=== PATIENT | female | born 1975 | race Caucasian/White ===

== ENCOUNTER → 2020-03-30 12:21 | Outpatient (BNVA) | payer MEDICARE, MEDICAID, SELFPAY | PROVIDERS: PCP Family Medicine; Referring Provider Internal Medicine; Visit Provider Psychiatry & Neurology Neurology | DX: E11.40 Type 2 diabetes mellitus with diabetic neuropathy, unspecified (principal); G56.20 Lesion of ulnar nerve, unspecified upper limb | CPT/HCPCS: 95910; 95923; 99204 ==

== ENCOUNTER → 2020-06-23 13:04 | Outpatient (BNVA) | payer MEDICARE, MEDICAID, SELFPAY | PROVIDERS: PCP Family Medicine; Referring Provider Family Medicine; Visit Provider Nurse Practitioner Adult Health | DX: G56.20 Lesion of ulnar nerve, unspecified upper limb (principal); E11.40 Type 2 diabetes mellitus with diabetic neuropathy, unspecified; I10 Essential (primary) hypertension | CPT/HCPCS: 99213; 99441 ==

== ENCOUNTER 2021-05-20 03:42 | Outpatient (CLI) | payer MEDICARE, MEDICAID, SELFPAY ==
--- NOTE | 2021-05-20 | DI.US_ITS ---
Exam(s) US ABDOMEN LIMITED EXAM: US ABDOMEN LIMITED CLINICAL HISTORY: HEPATIC CIRRHOSIS,K74.60,SCREEN FOR HCC TECHNIQUE: Ultrasound performed using standard protocol. COMPARISON: US US ABD LTD - ONE ORGAN/QUAD from 05/31/2020 FINDINGS: There is reportedly history of cirrhosis. There is mild nodular contour of the liver consistent with this diagnosis and there is also coarse echotexture of the liver consistent with this diagnosis. No focal lesion identified. Mild hepatomegaly noted. Note is made of hepatofugal flow in the portal vein. Gallbladder has been surgically removed. There is no biliary dilatation. Right kidney unremarkable in appearance with no evidence of hydronephrosis or nephrolithiasis. IMPRESSION: No focal hepatic mass in a patient with reported history of cirrhosis. Hepatofugal flow is noted in the portal vein. DATA REPOSITORY:
== END 2021-05-20 04:02 ==
PROVIDERS: Visit Provider Internal Medicine Gastroenterology
DX: K74.60 Unspecified cirrhosis of liver (principal)
CPT/HCPCS: 76705

== ENCOUNTER 2023-07-25 10:38 | Outpatient (CLI) | payer MEDICARE, SELFPAY ==
--- NOTE | 2023-07-25 09:45 | DI.RAD_ITS ---
Exam(s) XR SHOULDER LT COMPLETE 2+V EXAM: XR SHOULDER LT COMPLETE 2+V INDICATION: F/U FRACTURE. COMPARISON: CR XR SHOULDER MIN 2V LT from 07/18/2023 TECHNIQUE: 2D digital imaging was performed. Two views. FINDINGS: There has been no change in the alignment of the humeral head fracture. Glenohumeral joint space is maintained. No new findings. DATA REPOSITORY: RADIATION DOSE DELIVERED:
== END 2023-07-25 10:39 | disposition home or self-care (01) ==
LOC: DIORS 10:39
PROVIDERS: PCP Registered Nurse; Referring Provider Registered Nurse; Visit Provider Student in an Organized Health Care Education/Training Program
DX: M25.512 Pain in left shoulder (principal); S42.202A Unspecified fracture of upper end of left humerus, initial encounter for closed fracture; W00.9XXA Unspecified fall due to ice and snow, initial encounter
CPT/HCPCS: 99203; 73030; 73200

== ENCOUNTER → 2023-07-25 16:58 | Outpatient (CLI) | payer MEDICARE, SELFPAY ==
--- NOTE | 2023-07-25 11:15 | DI.CT_ITS ---
Exam(s) CT UPPER EXTREMITY LT WO EXAM: CT UPPER EXTREMITY LT WO CLINICAL HISTORY: SURGICAL PLANNING, S4 Unspecified fx of upper end of left humerus. TECHNIQUE: Imaging Protocol: Axial computed tomography images with coronal and sagittal reformatted images were created and reviewed. COMPARISON: CR XR SHOULDER LT COMPLETE 2+V from 07/25/2023 FINDINGS: Bones: Comminuted humeral head fracture. Main fracture extends transversely through the surgical nec k. Multiple other fracture lines extend through to the greater tuberosity. Minimal displacement. N o additional fractures. No cellulitic or osteomyelitic changes are identified. No lytic or sclerotic lesions are identified. Joints: The glenohumeral and acromioclavicular joints show minimal degenerative changes. Glenohumeral alignment appears normal. Soft Tissues: Glenohumeral joint effusion. No significant muscle atrophy. Visualized portion of lef t lung appear clear. IMPRESSION: Comminuted fracture of the humeral head with mild displacement. RADIATION DOSE DELIVERED: Total DLP Total DLP Total DLP Total DLP DATA REPOSITORY: All CT scans at this facility are submitted to the National Radiology Data Registry (NRDR) Dose Index Registry (DIR) with the [employer] ([employer]). RADIATION OPTIMIZATION: All CT scans at this facility use at least one of these dose optimization te chniques: automated exposure control; mA and/or kV adjustment per patient size (includes targeted exa ms where dose is matched to clinical indication); or iterative reconstruction.
== END ==
PROVIDERS: PCP Registered Nurse; Visit Provider Student in an Organized Health Care Education/Training Program
DX: S42.352D Displaced comminuted fracture of shaft of humerus, left arm, subsequent encounter for fracture with routine healing (principal); X58.XXXD Exposure to other specified factors, subsequent encounter
CPT/HCPCS: 73200

== ENCOUNTER 2023-08-29 15:52 | Outpatient (CLI) | payer MEDICARE, MEDICAID, SELFPAY ==
--- NOTE | 2023-08-29 10:00 | DI.RAD_ITS ---
Exam(s) XR SHOULDER LT COMPLETE 2+V EXAM: XR SHOULDER LT COMPLETE 2+V CLINICAL HISTORY: F/U FRACTURE. TECHNIQUE: 2D digital imaging was performed. COMPARISON: CR XR SHOULDER LT COMPLETE 2+V from 07/25/2023 FINDINGS: Two views: Again noted is a transverse mildly impacted fracture of the humeral neck and no evidence of dislocati on nor narrowing of the glenohumeral joint. The fracture also appears to involve the greater tuberos ity. Subacromial space is not diminished. IMPRESSION: Stable appearance. No significant displacement. Mild impaction. No dislocation. DATA REPOSITORY: RADIATION DOSE DELIVERED:
== END 2023-08-29 15:53 | disposition home or self-care (01) ==
LOC: DIORS 15:52
PROVIDERS: PCP Registered Nurse; Referring Provider Registered Nurse; Visit Provider Student in an Organized Health Care Education/Training Program
DX: S42.202D Unspecified fracture of upper end of left humerus, subsequent encounter for fracture with routine healing; X58.XXXD Exposure to other specified factors, subsequent encounter; M25.622 Stiffness of left elbow, not elsewhere classified; R60.0 Localized edema; R23.3 Spontaneous ecchymoses; K74.60 Unspecified cirrhosis of liver
CPT/HCPCS: 99213; 73030

== ENCOUNTER 2023-10-24 15:27 | Outpatient (CLI) | payer MEDICARE, MEDICAID, SELFPAY ==
--- NOTE | 2023-10-24 11:13 | DI.RAD_ITS ---
Exam(s) XR SHOULDER LT COMPLETE 2+V EXAM: XR SHOULDER LT COMPLETE 2+V CLINICAL HISTORY: F/U FRACTURE. TECHNIQUE: 2D digital imaging was performed of the left shoulder. Three images were obtained. Gras hey and Y views were obtained. COMPARISON: CR XR SHOULDER LT COMPLETE 2+V from 08/29/2023 FINDINGS: BONES: Given the slight changes in positioning there does not appear to be significant change in alig nment of the proximal humeral surgical neck fracture. There is callus formation again seen about the fracture suggesting some interval healing. No new fracture is seen. No bony destructive lesion is seen. JOINTS: No dislocation present. The acromioclavicular and glenohumeral joints are well maintained. SOFT TISSUE: The visualized lungs are clear. IMPRESSION: Stable alignment of the proximal left humeral fracture. DATA REPOSITORY: RADIATION DOSE DELIVERED:
== END 2023-10-24 15:28 | disposition home or self-care (01) ==
LOC: DIORS 15:27
PROVIDERS: PCP Registered Nurse; Referring Provider Registered Nurse; Visit Provider Student in an Organized Health Care Education/Training Program
DX: S42.202D Unspecified fracture of upper end of left humerus, subsequent encounter for fracture with routine healing (principal); X58.XXXD Exposure to other specified factors, subsequent encounter; M25.622 Stiffness of left elbow, not elsewhere classified
CPT/HCPCS: 99213; 73030

== ENCOUNTER 2024-06-20 15:01 | Emergency (ER) | payer MEDICARE, MEDICAID, SELFPAY ==
[2024-06-20] VITALS (10 sets, daily range): BP systolic 166–181; BP diastolic 111–128; PULSE 88–111; RESP 6–16; TEMP 36.6; O2SAT 96–100
[2024-06-20 15:44] LABS: Abs Immature Grans 0.02 10^3/uL (0.0-0.06); Absolute Basophil Count 0.02 10^3/uL (0.0-0.2); Absolute Eosinophil Count 0.03 10^3/uL (0.0-0.7); Absolute Monocyte Count 0.64 10^3/uL (0.1-0.8); Absolute Neutrophil Count 3.68 10^3/uL (1.2-6.7); BE (Venous) 2 mmol/L (-2-3); Basophils % 0.3 %; Eosinophils % 0.5 %; HCO3 (Venous) 26 mmol/L (23-28); HCT 34.2 % (36.0-46.0); HGB 11.8 g/dL (11.2-15.7); Immature Grans % 0.3 %; Lymphocytes % 25.5 %; MCH 32.2 pg (27.0-33.0); MCHC 34.5 % (32.0-36.0); MCV 93 fL (80-95); MPV 9.6 fL (8.0-11.0); Monocytes % 10.9 %; Neutrophils % 62.5 %; O2 Sat (Venous) 89 %; Platelet Count 125 10^3/uL (130-400); RBC 3.67 10^6/uL (3.93-5.22); RDW 14.5 % (11.7-14.6); RDW-SD 47.9 fL; TCO2 (Venous) 24 mmol/L (24-29); WBC 5.89 10^3/uL (4.4-10.8); pCO2 (Venous) 41 mmHg (41-51); pH (Venous) 7.42 (7.31-7.41); pO2 (Venous) 58 mmHg
[2024-06-20 16:01] LABS: INR 1.6 (0.9-1.1); PTT Activated 31.3 sec (23.6-32.8); Prothrombin Time 15.8 sec (9.1-11.1)
[2024-06-20 16:08] LABS: ALT 40 U/L (14-59); AST 70 U/L (15-37); Albumin 3.7 g/dL (3.4-5.0); Alkaline Phosphatase 116 U/L (46-116); Anion Gap 14.7 mmol/L (3-11); BUN 8 mg/dL (7-18); Bilirubin, Total 2.28 mg/dL (0.2-1.0); CO2 26.3 mmol/L (21.0-32.0); CREATININE 0.8 mg/dL (0.55-1.02); Calcium 9.8 mg/dL (8.5-10.1); Chloride 97 mmol/L (98-107); ETHANOL BLOOD 5.9 mg/dL (<10); Glucose 275 mg/dL (74-106); Potassium 3.5 mmol/L (3.5-5.1); Sodium 138 mmol/L (136-145); Total Protein 9.9 g/dL (6.4-8.2)
[2024-06-20 16:58] LABS: Bilirubin Moderate (Negative); Blood Negative (Negative); Clarity Clear (Clear); Glucose 500 mg/dL (Negative); Ketones 40 mg/dL (Negative); Leukocyte Esterase Negative (Negative); Nitrite Negative (Negative); Specific Gravity 1.025 (1.005-1.025); Urobilinogen >=8.0 mg/dL (Up to 0.2)
[2024-06-20 17:07] LABS: Bacteria Negative HPF (Negative); C & S Indicated? No; Crystals Negative HPF (Negative); Epithelial Cells Many HPF (Negative); Mucus Trace (Negative); Other Cells Rare Yeast (Negative); RBC 0-2 HPF (0-2); WBC 0-2 HPF (0-5)
[2024-06-20] MEDS: Insulin REGULAR-Human 100 UNITS/ML UNIT IV (17:07)
[2024-06-20 18:07] LABS: Anion Gap 11.4 mmol/L (3-11); BUN 9 mg/dL (7-18); CO2 29.6 mmol/L (21.0-32.0); CREATININE 0.8 mg/dL (0.55-1.02); Calcium 9.5 mg/dL (8.5-10.1); Chloride 99 mmol/L (98-107); Glucose 115 mg/dL (74-106); Potassium 3.2 mmol/L (3.5-5.1); Sodium 140 mmol/L (136-145)
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
== END 2024-06-20 18:33 | disposition home or self-care (01) ==
PROVIDERS: Emergency Provider Emergency Medicine; PCP Registered Nurse
DX: E11.65 Type 2 diabetes mellitus with hyperglycemia (principal); I10 Essential (primary) hypertension; R00.0 Tachycardia, unspecified; E11.40 Type 2 diabetes mellitus with diabetic neuropathy, unspecified; B19.20 Unspecified viral hepatitis C without hepatic coma; K70.30 Alcoholic cirrhosis of liver without ascites; Z79.84 Long term (current) use of oral hypoglycemic drugs; Z87.891 Personal history of nicotine dependence
CPT/HCPCS: 36415; 80048; 80053; 82805; 82962; 86850; 86900; 86901; 99284; 80320; 81003; 81015; 85025; 85610; 85730; 99283; J1815

== ENCOUNTER 2024-07-14 13:39 | Emergency (ER) | payer MEDICARE, MEDICAID, SELFPAY ==
[2024-07-14 13:42] VITALS: BP 129/89; PULSE 88; RESP 17; TEMP 37.2; O2SAT 99
[2024-07-14 13:49] VITALS: BP 129/89; PULSE 88; RESP 17; TEMP 37.2; O2SAT 99
[2024-07-14 14:10] VITALS: RESP 16
[2024-07-14] MEDS: Insulin REGULAR-Human 100 UNITS/ML UNIT 9 UNITS SC (14:30)
--- NOTE | 2024-07-14 14:46 | W.ED.GENAD ---
Discharge Plan Disposition Patient Disposition: Home Condition: Good Discharge Details Clinical Impression: Hyperglycemia, Thrombocytopenia, Leukopenia Primary Care Provider: Celia Mhamood ED Provider: Jaquan Chen Home Meds and New Rx's Prescriptions: New (DME) diabetic supplies, miscellan. Misc See Rx Instructions .Route Qty: 25 0RF Rx Instructions: As directed, glucometer, test strips, testing stylette No Action gabapentin 300 mg capsule 300 mg PO QHS Qty: 60 5RF Rx Instructions: 300mg HS x 1week, then 600mg HS thereafter lisinopril 2.5 mg tablet 1.5 mg PO DAILY sxzpdonb-zqgr-bvqro-oreg-capry 100 mg-150 mg- 50 mg-150 mg capsule 1 cap PO DAILY calcium carbonate [Calcium 600] 600 mg calcium (1,500 mg) tablet 600 mg PO DAILY lorazepam [Ativan] 0.5 mg tablet 0.5 mg PO BID PRN omeprazole 40 mg capsule,delayed release(DR/EC) 40 mg PO DAILY ondansetron HCl 4 mg tablet 4 mg PO BID PRN ascorbate calcium (vitamin C) 500 mg tablet 1 gm PO DAILY methadone 10 mg/5 mL solution 115 mg PO DAILY Trulicity 1.5 mg/0.5 mL pen injector 1.5 mg SUBCUT QWEEK Patient Comments: INJECT 1.5 MG (0.5 ML) SUBCUTANEOUSLY ONCE A WEEK lisinopril 5 mg tablet 5 mg PO DAILY Patient Comments: TAKE 1 TABLET BY MOUTH ONCE DAILY Discharge Instructions Instructions: Bleeding Precautions, High Blood Sugar, Adult ED Additional Instructions: At this time your laboratory workup has returned and shows evidence of a low white blood cell count and low platelets. While you have had this in the past, it certainly does require further evaluation. Please follow-up closely with your primary care provider. We have placed a referral for a new PCP in this area as well. We have also placed a referral with [facility] hematology for further evaluation of your abnormally low white blood cell and platelets. Please avoid any alcohol tobacco or vaping. Please take a daily multivitamin. Please avoid any excessive ibuprofen. Please try to focus on healthy diet. If you notice any worsening of your symptoms, or any new symptoms such as vomiting, diarrhea, fever, chills, shortness of breath, chest pain, numbness, weakness, or fainting , please return immediately to the emergency department for reevaluation. Please follow up with your primary care provider as soon as possible for reassessment and reevaluation. As always, it was a pleasure participating in your medical care today. Referrals: Celia Mahmood NP [Primary Care Provider] - [facility] General Date/Time Provider Initiated Documentation: 07/14/24 13:58. HPI Narrative: 49-year-old female with a past medical history of hypertension, high cholesterol, methadone use, diabetes currently on insulin specifically Lantus every night and Trulicity every week. She presents today for feeling off. Patient states that she has been feeling off for the last 24 to 48 hours. She is not able to describe this anymore. She does admit to feeling slightly fatigued. She denies any dysuria, hematuria, chest pain, cough, shortness of breath, headache or neck pain. She did check her sugar and noticed it to be elevated in the mid to high 200s. She has not missed her doses of Lantus. She took this last night as indicated. She is scheduled to get her Trulicity tomorrow. No other complaints at this time. Related Data Home Medications ?Medication ?Instructions ?Recorded ?Confirmed ascorbate calcium (vitamin C) 500 1 gm PO DAILY 03/11/20 07/14/24 mg tablet lorazepam 0.5 mg tablet (Ativan) 0.5 mg PO BID PRN 03/11/20 07/14/24 omeprazole 40 mg capsule,delayed 40 mg PO DAILY 03/11/20 07/14/24 release ondansetron HCl 4 mg tablet 4 mg PO BID PRN 03/11/20 07/14/24 gabapentin 300 mg capsule 300 mg PO QHS #60 caps 03/30/20 07/14/24 methadone 10 mg/5 mL oral solution 115 mg PO DAILY 03/30/20 07/14/24 calcium carbonate (Calcium 600) 600 mg PO DAILY 08/29/23 07/14/24 turmeric 100 mg-margarita 150 1 cap PO DAILY 08/29/23 07/14/24 mg-olive 50 mg-oreg 150 mg-capryl capsule lisinopril 2.5 mg tablet 1.5 mg PO DAILY 06/20/24 07/14/24 diabetic supplies, miscellan. #25 ea 07/14/24 dulaglutide 1.5 mg/0.5 mL 1.5 mg subcut QWEEK 07/14/24 07/14/24 [facility] lisinopril 5 mg tablet 5 mg PO DAILY 07/14/24 07/14/24 Previous Rx's ?Medication ?Instructions ?Recorded gabapentin 300 mg capsule 300 mg PO QHS #60 caps 03/30/20 diabetic supplies, miscellan. #25 ea 07/14/24 Allergies Allergy/AdvReac Type Severity Reaction Status Date / Time prochlorperazine (From Allergy Severe Dyspnea,tongue Verified 07/14/24 13:46 Compazine) and face stiffness General Stated Complaint: GenMedical LEO: 3 Review of Systems All systems reviewed & are unremarkable except as noted in HPI and below Exam Narrative Exam Narrative: 1.Const: Well-nourished, Well-developed, appearing stated age 2.Eyes: PERRL, no conjunctival injection, and symmetrical lids. 3.ENT: Atraumatic external nose and ears. Notably dry mucous membranes MM. Neck: Symmetric, trachea midline, No thyromegaly. 4.CVS: +S1/S2, Peripheral pulses 2+ and equal in all extremities. Brisk capillary refill in all extremities. 5.RESP: Unlabored respiratory effort. Clear to auscultation bilaterally. No wheezes rales or rhonchi 6.GI: Soft, Nontender/Nondistended, No hepatosplenomegaly. No guarding or rebound. 7.MSK: Normocephalic/Atraumatic, Extremities w/o deformity or ttp No cyanosis or clubbing, Normal movement of all extremities 8.Skin: Warm, Dry. No rashes or lesions. 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 Sensation grossly intact, no focal neurologic deficits. 10.Psych: (AAO) x3. Appropriate mood and affect Course Vital Signs Vital signs: Vital Signs Temperature 37.2 C 07/14/24 13:42 Pulse 88 07/14/24 13:42 Respiratory Rate 17 07/14/24 13:42 Blood Pressure 129/89 07/14/24 13:42 Pulse Oximetry 99 07/14/24 13:42 Temperature 37.2 C 07/14/24 13:49 Temperature Source Oral 07/14/24 13:49 Pulse 88 07/14/24 13:49 Respiratory Rate 16 07/14/24 14:10 Respiratory Effort Normal, Non-Labored 07/14/24 14:10 Respiratory Depth Normal 07/14/24 14:10 Respiratory Pattern Normal 07/14/24 14:10 Blood Pressure 129/89 07/14/24 13:49 Blood Pressure Position Sitting 07/14/24 13:49 Pulse Oximetry 99 07/14/24 13:49 Oxygen Delivery Method Room Air 07/14/24 13:49 Oxygen Flow Rate 0 07/14/24 13:49 Pain Level 0 07/14/24 13:49 Medical Decision Making 49-year-old female with a past medical history of hypertension, high cholesterol, methadone use, diabetes currently on insulin specifically Lantus every night and Trulicity every week. She presents today for feeling off. Patient states that she has been feeling off for the last 24 to 48 hours. She is not able to describe this anymore. She does admit to feeling slightly fatigued. She denies any dysuria, hematuria, chest pain, cough, shortness of breath, headache or neck pain. She did check her sugar and noticed it to be elevated in the mid to high 200s. She has not missed her doses of Lantus. She took this last night as indicated. She is scheduled to get her Trulicity tomorrow. No other complaints at this time. Physical exam demonstrates well-appearing female. No guarding or rebound. No nuchal rigidity. Dry mucous membranes are present. Concern for dehydration, electrolyte pathology, UTI. Will evaluate for these, monitor closely and reassess. We will give insulin as well to help bring her sugars down. 3:49 PM Laboratory workup has returned, patient does have a low white blood cell count of 2.85, hemoglobin stable, platelets are also low at 77. Review of labs demonstrates that the patient has been low in the past, and when discussing this with her she states that she is required a platelet transfusion in the past. She states that she has not had a significant workup for these low levels secondary to changes and retirements of practitioners that were caring for her. Patient's bili is slightly elevated at 1.5 however she has no jaundice or right upper quadrant tenderness. And in review of her labs this appears to be her baseline to have an elevated bili. Urinalysis does show some trace ketones, but no evidence of infection. Bicarb is normal, anion gap is only 12. Symptoms inconsistent for DKA. Patient is feeling much better after oral fluids and small dose of insulin. Patient shows no signs of significant life-threatening illness at this time. She also denies any recent unexplained bruising, nosebleeds, or other hematologic like symptoms. She does admit to this in the distant past over a year or 2 ago. Out of concern for these findings, we we will place a referral with [facility] hematology for follow-up. Additionally she is seeking to switch practitioners to [facility] in [facility], and we will place a referral on her behalf. Recommend close follow-up with her PCP. Patient otherwise stable at this time for discharge. Recommend low sugar diet, and close monitoring of her blood sugars at home. We will place a prescription for diabetic supplies. Patient stable for discharge. I have extensively reviewed the treatment plan and discharge instructions with the patient. I have addressed all patient concerns at this time. The patient was made aware of what symptoms to monitor for that would warrant a return to the emergency department. Discussed the plan with the patient, they demonstrate verbal understanding and agreement with our assessment and plan at this time. The documentation in this chart was dictated using [employer] dictation software. Please excuse any dictation errors. 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) Diabetic neuropathy (Acute) Medical History (Updated 07/14/24 @ 15:34 by Jaquan Chen DO) Insomnia Migraine headache without aura Hepatitis C GERD (gastroesophageal reflux disease) Depression Hypertension Fracture of right lower limb Pain of breast Hernia Nonspecific tuberculin test reaction Hypothyroidism Right sided sciatica Pain in right lower leg Asthma Opioid dependence Type 2 diabetes mellitus Surgical History S/P ORIF (open reduction internal fixation) fracture R leg; 07/17, 10/16, 04/18 History of esophagogastroduodenoscopy (EGD) History of dilation and curettage History of liver biopsy History of cholecystectomy H/O resection of liver Family History Maternal Grandfather Stomach cancer Hypertension Lung cancer Paternal Grandmother Breast cancer Hypertension Maternal Uncle Diabetes Social History Smoking/Tobacco Use Status: Former Tobacco Use Smoking risk assessment performed?: Yes Alcohol Intake: never Drug use: Never Substance use type: does not use Household members: none Housing: apartment Number of Children: 0 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
[2024-07-14 14:47] LABS: Abs Immature Grans 0.01 10^3/uL (0.0-0.06); Absolute Basophil Count 0.02 10^3/uL (0.0-0.2); Absolute Eosinophil Count 0.01 10^3/uL (0.0-0.7); Absolute Lymphocyte Count 1.03 10^3/uL (1.2-3.4); Absolute Monocyte Count 0.17 10^3/uL (0.1-0.8); Absolute Neutrophil Count 1.61 10^3/uL (1.2-6.7); Basophils % 0.7 %; Eosinophils % 0.4 %; HCT 33.8 % (36.0-46.0); HGB 11.4 g/dL (11.2-15.7); Immature Grans % 0.4 %; Lymphocytes % 36.1 %; MCH 31.9 pg (27.0-33.0); MCHC 33.7 % (32.0-36.0); MCV 95 fL (80-95); MPV 10.9 fL (8.0-11.0); Neutrophils % 56.4 %; RBC 3.57 10^6/uL (3.93-5.22); RDW-SD 45.1 fL; WBC 2.85 10^3/uL (4.4-10.8)
[2024-07-14 14:48] LABS: Bilirubin Negative (Negative); Blood Negative (Negative); Clarity Clear (Clear); Glucose >=1000 mg/dL (Negative); Ketones Trace mg/dL (Negative); Leukocyte Esterase Negative (Negative); Nitrite Negative (Negative); Specific Gravity 1.015 (1.005-1.025); Urobilinogen >=8.0 mg/dL (Up to 0.2); pH 6.5 (5-8)
[2024-07-14 14:54] LABS: ALT 37 U/L (14-59); AST 99 U/L (15-37); Albumin 3.5 g/dL (3.4-5.0); Alkaline Phosphatase 109 U/L (46-116); Anion Gap 12.1 mmol/L (3-11); BUN 9 mg/dL (7-18); Bilirubin, Total 1.51 mg/dL (0.2-1.0); CO2 26.9 mmol/L (21.0-32.0); CREATININE 0.9 mg/dL (0.55-1.02); Calcium 8.5 mg/dL (8.5-10.1); Chloride 98 mmol/L (98-107); Estimated GFR 78.86 (mL/min/1.73m2); Glucose 240 mg/dL (74-106); Potassium 3.9 mmol/L (3.5-5.1); Sodium 137 mmol/L (136-145); Total Protein 9.5 g/dL (6.4-8.2)
[2024-07-14 15:00] LABS: Platelet Count 77 10^3/uL (130-400)
[2024-07-14 15:12] LABS: Bacteria Rare HPF (Negative); Casts Negative LPF (Negative); Crystals Negative HPF (Negative); Epithelial Cells Few HPF (Negative); Mucus Negative (Negative); Other Cells Rare Transitional (Negative); RBC 0-2 HPF (0-2); WBC 0-2 HPF (0-5)
[2024-07-14 15:13] LABS: C & S Indicated? No
[2024-07-14 15:55] VITALS: BP 137/96; PULSE 83; RESP 17; TEMP 36.7; O2SAT 100
== END 2024-07-14 15:59 | disposition home or self-care (01) ==
PROVIDERS: Emergency Provider Student in an Organized Health Care Education/Training Program; PCP Registered Nurse
DX: D72.819 Decreased white blood cell count, unspecified; D69.6 Thrombocytopenia, unspecified; I10 Essential (primary) hypertension; E78.5 Hyperlipidemia, unspecified; Z79.891 Long term (current) use of opiate analgesic; R53.83 Other fatigue; E11.65 Type 2 diabetes mellitus with hyperglycemia
CPT/HCPCS: 36416; 80053; 82962; 99283; 81003; 81015; 85025; 99284; J1815

== ENCOUNTER 2024-08-11 07:03 | Emergency (ER) | payer MEDICARE, MEDICAID, SELFPAY ==
[2024-08-11 07:10] VITALS: BP 115/81; PULSE 89; RESP 16; TEMP 36.6; O2SAT 99
[2024-08-11 07:51] LABS: Bilirubin Small (Negative); Blood Trace-lysed (Negative); Clarity Cloudy (Clear); Glucose Negative (Negative); Ketones 15 mg/dL (Negative); Leukocyte Esterase Moderate (Negative); Nitrite Negative (Negative); Urobilinogen >=8.0 mg/dL (Up to 0.2)
[2024-08-11 07:59] LABS: C & S Indicated? No; WBC >50 HPF (0-5)
--- NOTE | 2024-08-11 08:06 | ED.GENADUL_ITS ---
Discharge Plan Disposition Patient Disposition: Home Condition: Good Discharge Details Clinical Impression: UTI (urinary tract infection) Primary Care Provider: Celia Mahmood ED Provider: Jaquan Chen Home Meds and New Rx's Prescriptions: New cephalexin 500 mg capsule 500 mg PO QID 7 Days Qty: 28 0RF estradiol [Estrace] 0.01 % (0.1 mg/gram) cream 1 appful vaginal DAILY Qty: 42.5 0RF Rx Instructions: for 14 days No Action lisinopril 2.5 mg tablet 1.5 mg PO DAILY calcium carbonate [Calcium 600] 600 mg calcium (1,500 mg) tablet 600 mg PO DAILY lorazepam [Ativan] 0.5 mg tablet 0.5 mg PO BID PRN omeprazole 40 mg capsule,delayed release(DR/EC) 40 mg PO DAILY ondansetron HCl 4 mg tablet 4 mg PO BID PRN ascorbate calcium (vitamin C) 500 mg tablet 1 gm PO DAILY methadone 10 mg/5 mL solution 115 mg PO DAILY Trulicity 1.5 mg/0.5 mL pen injector 1.5 mg SUBCUT QWEEK Patient Comments: INJECT 1.5 MG (0.5 ML) SUBCUTANEOUSLY ONCE A WEEK lisinopril 5 mg tablet 5 mg PO DAILY Patient Comments: TAKE 1 TABLET BY MOUTH ONCE DAILY (DME) diabetic supplies, miscellan. [facility] See Rx Instructions .Route Qty: 25 0RF Rx Instructions: As directed, glucometer, test strips, testing stylette (DME) blood-glucose meter Kit See Rx Instructions .Route Qty: 1 0RF Rx Instructions: check 3 times daily before meals (DME) blood sugar diagnostic Strip See Rx Instructions .Route Qty: 100 1RF Rx Instructions: TID before meals (DME) lancets [address] [facility] See Rx Instructions .Route Qty: 200 0RF Rx Instructions: tid magnesium oxide 500 mg magnesium tablet 500 mg PO DAILY Patient Comments: TAKE 1 TABLET BY MOUTH ONCE DAILY potassium chloride 20 mEq tablet extended release 20 meq PO BID Patient Comments: TAKE 1 TABLET BY MOUTH TWICE DAILY gabapentin 300 mg capsule 300 mg PO QHS PRN Rx Instructions: 300mg HS x 1week, then 600mg HS thereafter insulin glargine [Lantus Solostar U-100 Insulin] 100 unit/mL (3 mL) insulin pen 28 unit SUBCUT DAILY Patient Comments: INJECT 28 UNITS SUBCUTANEOUSLY DAILY Discharge Instructions Instructions: Urinary Tract Infection, Adult ED Additional Instructions: At this time you have evidence of urinary tract infection. Sometimes this can be a reflection of the change in the bacteria that are present in the genital area as we get older and transition through menopause. Please take the antibiotic Keflex as prescribed. Is been sent to your pharmacy on file. Please use the vaginal estrogen as prescribed for the time being to help increase the natural state of the genital area. Please take an cngo-ahh-vpqonfe cranberry supplement while you have your symptoms of the UTI. If you notice any worsening of your symptoms, or any new symptoms such as vomiting, diarrhea, fever, chills, shortness of breath, chest pain, numbness, weakness, or fainting , please return immediately to the emergency department for reevaluation. Please follow up with your primary care provider as soon as possible for reassessment and reevaluation. As always, it was a pleasure participating in your medical care today. Referrals: Celia Mahmood NP [Primary Care Provider] - Discharge Data Discharge Date/Time-TO BE ENTERED AT DEPARTURE: 08/11/24 08:52 HPI General Date/Time Provider Initiated Documentation: 08/11/24 07:11 . HPI Narrative: This is a pleasant 49-year-old female with a past medical history of hypertension, high cholesterol, methadone use, diabetes currently on insulin specifically Lantus every night and Trulicity every week, who presents today for evaluation of urinary frequency and discomfort. Patient states it has been present for the last few days. She denies fever or chills. She denies any flank pain. She has not had intercourse in a long time. She has gone through menopause she states. She denies any history of kidney stones. No other complaints at this time. No hematuria. She has been taking cranberry without significant improvement. Related Data Home Medications ?Medication ?Instructions ?Recorded ?Confirmed ascorbate calcium (vitamin C) 500 1 gm PO DAILY 03/11/20 08/11/24 mg tablet lorazepam 0.5 mg tablet (Ativan) 0.5 mg PO BID PRN 03/11/20 08/11/24 omeprazole 40 mg capsule,delayed 40 mg PO DAILY 03/11/20 08/11/24 release ondansetron HCl 4 mg tablet 4 mg PO BID PRN 03/11/20 08/11/24 methadone 10 mg/5 mL oral solution 115 mg PO DAILY 03/30/20 08/11/24 calcium carbonate (Calcium 600) 600 mg PO DAILY 08/29/23 08/11/24 lisinopril 2.5 mg tablet 1.5 mg PO DAILY 06/20/24 08/11/24 diabetic supplies, miscellan. #25 ea 07/14/24 dulaglutide 1.5 mg/0.5 mL 1.5 mg subcut QWEEK 07/14/24 08/11/24 subcutaneous pen injector (Trulicity) lisinopril 5 mg tablet 5 mg PO DAILY 07/14/24 08/11/24 blood sugar diagnostic #100 ea 07/15/24 blood-glucose meter #1 ea 07/15/24 lancets 30 gauge #200 ea 07/15/24 cephalexin 500 mg capsule 500 mg PO QID 7 days #28 caps 08/11/24 estradiol 0.01% (0.1 mg/gram) 1 appful vaginal DAILY #42.5 grams 08/11/24 vaginal cream (Estrace) gabapentin 300 mg capsule 300 mg PO QHS PRN 08/11/24 08/11/24 insulin glargine 100 unit/mL (3 28 unit subcut DAILY 08/11/24 08/11/24 mL) subcutaneous pen (Lantus Solostar U-100 Insulin) magnesium oxide 500 mg PO DAILY 08/11/24 08/11/24 potassium chloride 20 mEq 20 meq PO BID 08/11/24 08/11/24 tablet,extended release Previous Rx's ?Medication ?Instructions ?Recorded diabetic supplies, miscellan. #25 ea 07/14/24 blood sugar diagnostic #100 ea 07/15/24 blood-glucose meter #1 ea 07/15/24 lancets 30 gauge #200 ea 07/15/24 cephalexin 500 mg capsule 500 mg PO QID 7 days #28 caps 08/11/24 estradiol 0.01% (0.1 mg/gram) 1 appful vaginal DAILY #42.5 grams 08/11/24 vaginal cream (Estrace) Allergies Allergy/AdvReac Type Severity Reaction Status Date / Time prochlorperazine (From Allergy Severe Dyspnea,tongue Verified 08/11/24 07:14 Compazine) and face stiffness General Stated Complaint: Urinary LEO: 4 Exam Narrative Exam Narrative: 1.Const: Well-nourished, Well-developed, appearing stated age 2.Eyes: PERRL, no conjunctival injection, and symmetrical lids. 3.ENT: Atraumatic external nose and ears. Moist MM. Neck: Symmetric, trachea midline, No thyromegaly. 4.CVS: +S1/S2, Peripheral pulses 2+ and equal in all extremities. Brisk capillary refill in all extremities. 5.RESP: Unlabored respiratory effort. Clear to auscultation bilaterally. No wheezes rales or rhonchi 6.GI: Soft, Nontender/Nondistended, No hepatosplenomegaly. No guarding or rebound. No flank or CVA tenderness. No suprapubic tenderness. 7.MSK: Normocephalic/Atraumatic, Extremities w/o deformity or ttp No cyanosis or clubbing, Normal movement of all extremities 8.Skin: Warm, Dry. No rashes or lesions. 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 Sensation grossly intact, no focal janet rologic deficits. 10.Psych: (AAO) x3. Appropriate mood and affect Course Vital Signs Vital signs: Vital Signs Temperature 36.6 C 08/11/24 07:10 Pulse 89 08/11/24 07:10 Respiratory Rate 16 08/11/24 07:10 Blood Pressure 115/81 08/11/24 07:10 Pulse Oximetry 99 08/11/24 07:10 Temperature 36.6 C 08/11/24 07:10 Temperature Source Tympanic 08/11/24 07:10 Pulse 89 08/11/24 07:10 Respiratory Rate 16 08/11/24 07:10 Blood Pressure 115/81 08/11/24 07:10 Pulse Oximetry 99 08/11/24 07:10 Oxygen Delivery Method Room Air 08/11/24 07:10 Oxygen Flow Rate 0 08/11/24 07:10 Pain Level 0 08/11/24 07:13 Lab/Test Results Lab/Test Results: Laboratory Tests Range/Units 08/11/24 07:25 Urine Color (Yellow) Dark Yellow Urine Clarity (Clear) Cloudy Urine pH (5-8) 6.0 Ur Specific [place] (1.005-1.025) 1.020 Urine Protein (Neg-Trace) mg/dL 30 H Urine Ketones (Negative) mg/dL 15 H Urine Blood (Negative) Trace-lysed H Urine Nitrite (Negative) Negative Urine Bilirubin (Negative) Small H Urine Urobilinogen (Up to 0.2) mg/dL >=8.0 H Ur Leukocyte Esterase (Negative) Moderate H Urine RBC Not Applicable Urine WBC (0-5) HPF >50 H Ur Epithelial Cells Not Applicable Urine Crystals Not Applicable Urine Bacteria Not Applicable Urine Mucus Not Applicable Ur Culture Indicated? No Urine Glucose (Negative) mg/dL Negative Medical Decision Making This is a pleasant 49-year-old female with a past medical history of hypertension, high cholesterol, methadone use, diabetes currently on insulin specifically Lantus every night and Trulicity every week, who presents today for evaluation of urinary frequency and discomfort. Patient states it has been present for the last few days. She denies fever or chills. She denies any flank pain. She has not had intercourse in a long time. She has gone through menopause she states. She denies any history of kidney stones. No other complaints at this time. No hematuria. She has been taking cranberry without significant improvement. Exam demonstrates well-appearing female, no abdominal pain pelvic pain or flank pain to suggest Talon. No hematuria to suggest stone. Urinalysis shows greater than 50 WBCs with moderate leuk esterase, negative nitrates. Will treat with Keflex. Will give vaginal estrogen to improve genital health and hopefully prevent your infections in the future. Patient will be discharged home. Discussed red flags which to return. I have extensively reviewed the treatment plan and discharge instructions with the patient. I have addressed all patient concerns at this time. The patient was made aware of what symptoms to monitor for that would warrant a return to the emergency department. Discussed the plan with the patient, they demonstrate verbal understanding and agreement with our assessment and plan at this time. The documentation in this chart was dictated using [employer] dictation software. Please excuse any dictation errors. 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) Diabetic neuropathy (Acute) Medical History (Updated 08/11/24 @ 08:07 by Jaquan Chen DO) Insomnia Migraine headache without aura Hepatitis C GERD (gastroesophageal reflux disease) Depression Hypertension Fracture of right lower limb Pain of breast Hernia Nonspecific tuberculin test reaction Hypothyroidism Right sided sciatica Pain in right lower leg Asthma Opioid dependence Type 2 diabetes mellitus Surgical History S/P ORIF (open reduction internal fixation) fracture R leg; 07/17, 10/16, 04/18 History of esophagogastroduodenoscopy (EGD) History of dilation and curettage History of liver biopsy History of cholecystectomy H/O resection of liver Family History Maternal Grandfather Stomach cancer Hypertension Lung cancer Paternal Grandmother Breast cancer Hypertension Maternal Uncle Diabetes Social History Smoking/Tobacco Use Status: Current-Occasional Tobacco Type: e-cigarettes Smoking risk assessment performed?: Yes Alcohol Intake: never Drug use: Never Substance use type: does not use Household members: none Housing: apartment Number of Children: 0 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
[2024-08-11] MEDS: Cephalexin 500 MG CAP PO (08:48)
== END 2024-08-11 08:52 | disposition home or self-care (01) ==
PROVIDERS: Emergency Provider Student in an Organized Health Care Education/Training Program; PCP Registered Nurse
DX: N39.0 Urinary tract infection, site not specified (principal); R10.9 Unspecified abdominal pain; I10 Essential (primary) hypertension
CPT/HCPCS: 99283; 81003; 81015

== ENCOUNTER 2024-12-24 17:52 | Emergency (ER) | payer MEDICARE, MEDICAID, SELFPAY ==
[2024-12-24 17:54] VITALS: BP 144/98; PULSE 78; RESP 14; TEMP 36.6; O2SAT 96
[2024-12-24 18:00] VITALS: BP 144/98; PULSE 78; RESP 14; TEMP 36.6; O2SAT 96
--- NOTE | 2024-12-24 18:07 | ED.GENADUL_ITS ---
Discharge Plan Disposition Patient Disposition: Home Condition: Improving Discharge Details Clinical Impression: Anaplasmosis, Ehrlichiosis Primary Care Provider: Celia Mahmood ED Provider: Jose G Pal Home Meds and New Rx's Prescriptions: New doxycycline hyclate 100 mg capsule 100 mg PO BID 10 Days Qty: 20 0RF Continued lisinopril 2.5 mg tablet 1.5 mg PO DAILY calcium carbonate [Calcium 600] 600 mg calcium (1,500 mg) tablet 600 mg PO DAILY lorazepam [Ativan] 0.5 mg tablet 0.5 mg PO BID PRN omeprazole 40 mg capsule,delayed release(DR/EC) 40 mg PO DAILY ondansetron HCl 4 mg tablet 4 mg PO BID PRN ascorbate calcium (vitamin C) 500 mg tablet 1 gm PO DAILY methadone 10 mg/5 mL solution 115 mg PO DAILY Trulicity 1.5 mg/0.5 mL pen injector 1.5 mg SUBCUT QWEEK Patient Comments: INJECT 1.5 MG (0.5 ML) SUBCUTANEOUSLY ONCE A WEEK lisinopril 5 mg tablet 5 mg PO DAILY Patient Comments: TAKE 1 TABLET BY MOUTH ONCE DAILY (DME) diabetic supplies, [employer]ell[employer]. Misc See Rx Instructions .Route Qty: 25 0RF Rx Instructions: As directed, glucometer, test strips, testing stylette (DME) blood-glucose meter Kit See Rx Instructions .Route Qty: 1 0RF Rx Instructions: check 3 times daily before meals (DME) blood sugar diagnostic Strip See Rx Instructions .Route Qty: 100 1RF Rx Instructions: TID before meals (DME) [facility] See Rx Instructions .Route Qty: 200 0RF Rx Instructions: tid magnesium oxide 500 mg magnesium tablet 500 mg PO DAILY Patient Comments: TAKE 1 TABLET BY MOUTH ONCE DAILY potassium chloride 20 mEq tablet extended release 20 meq PO BID Patient Comments: TAKE 1 TABLET BY MOUTH TWICE DAILY gabapentin 300 mg capsule 300 mg PO QHS PRN Rx Instructions: 300mg HS x 1week, then 600mg HS thereafter insulin glargine [Lantus Solostar U-100 Insulin] 100 unit/mL (3 mL) insulin pen 28 unit SUBCUT DAILY Patient Comments: INJECT 28 UNITS SUBCUTANEOUSLY DAILY estradiol [Estrace] 0.01 % (0.1 mg/gram) cream 1 appful vaginal DAILY Qty: 42.5 0RF Rx Instructions: for 14 days Discharge Instructions Instructions: Ehrlichia and Anaplasma Infections (DC) Discharge Data Discharge Physician: Jose G Pal [facility] General Date/Time Provider Initiated Documentation: 12/24/24 18:07 . HPI Narrative: Patient presents emergency department complaining of generalized bodyaches and tiredness for weeks reports of some states her joints hurt. She states that her blood sugars are she is a type II diabetic were high about 3 weeks ago but lately they have been normal but she is still not feeling well sometimes she states that she has chills. Reports that her knees hurt at times. 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 #25 ea 07/14/24 12/24/24 dulaglutide 1.5 mg/0.5 mL 1.5 mg subcut QWEEK 07/14/24 12/24/24 subcutaneous pen injector (Trulicity) lisinopril 5 mg tablet 5 mg PO DAILY 07/14/24 12/24/24 blood sugar diagnostic #100 ea 07/15/24 12/24/24 blood-glucose meter #1 ea 07/15/24 12/24/24 lancets 30 gauge #200 ea 07/15/24 12/24/24 estradiol 0.01% (0.1 mg/gram) 1 appful vaginal DAILY #42.5 grams 08/11/24 12/24/24 vaginal cream (Estrace) gabapentin 300 mg capsule 300 mg PO QHS PRN 08/11/24 12/24/24 insulin glargine 100 unit/mL (3 28 unit subcut DAILY 08/11/24 12/24/24 mL) subcutaneous pen (Lantus Solostar U-100 Insulin) magnesium oxide 500 mg PO DAILY 08/11/24 12/24/24 potassium chloride 20 mEq 20 meq PO BID 08/11/24 12/24/24 tablet,extended release doxycycline hyclate 100 mg capsule 100 mg PO BID 10 days #20 caps 12/24/24 Previous Rx's ?Medication ?Instructions ?Recorded diabetic supplies, [employer]ellan. #25 ea 07/14/24 blood sugar diagnostic #100 ea 07/15/24 blood-glucose meter #1 ea 07/15/24 lancets 30 gauge #200 ea 07/15/24 estradiol 0.01% (0.1 mg/gram) 1 appful vaginal DAILY #42.5 grams 08/11/24 vaginal cream (Estrace) doxycycline hyclate 100 mg capsule 100 mg PO BID 10 days #20 caps 12/24/24 Allergies Allergy/AdvReac Type Severity Reaction Status Date / Time prochlorperazine (From Allergy Severe Dyspnea,tongue Verified 12/24/24 18:01 Compazine) and face stiffness General Stated Complaint: GenMedical LEO: 3 Review of Systems Narrative: Review of Systems: Eye: No recent visual problems ENT: No ear pain, nasal congestion, sore throat Respiratory: No shortness of breath, cough Cardiovascular: No Chest pain, palpitations, syncope Gastrointestinal: No nausea, vomiting, diarrhea Genitourinary: No hematuria Thierno/Lymph: Negative for bruising tendency, swollen lymph glands Endocrine: Negative for excessive thirst, excessive hunger Integumentary: No rash, pruritus, abrasions Neurologic: Alert & oriented X 4 Psychiatric: No anxiety, depression Exam Narrative Exam Narrative: Exam; vitals signs as reported above normal Constitutional; In no acute distress, afebrile General: cooperative, healthy appearing, comfortable and no acute distress HEENT: Head: normal to inspection, no palpable skull fracture and normocephalic atraumatic Eyes: : appearance normal, both eyes and all related structures EOM intact bilaterally Pupils: PERRL : conjunctiva normal Direct ophthalmoscopy: normal light reflex, normal conjunctiva, normal visual acuity Ears: Normal TM, normal external canal Nose: normal no rhinorreha Neck no JVD, supple non tender Neck: normal visual inspection, full ROM and no lymphadenopathy Chest: normal inspection of the chest Respiratory : normal respiratory effort and able to speak in complete sentences no wheezing no rales Cardio Rate: regular rate, rhythm: regular rhythm normal heart sounds S1 and S2 no murmurs, gallops, or rubs GI : normal to inspection, normal bowel sounds, soft, non tender, non distended, no organomegaly Back/Spine/ no CVA tenderness Thoracic/Lumbar Spine: no tenderness or deformities Skin no rashes or lesions Neuro: patient alert oriented x 4 and no meningeal signs, Cranial Nerves: CN's II-XI intact bilaterally, Cognition: normal cognition, Speech: speech normal, Gait: normal gait, Depp tendon reflexes normal 2+ muscle strength 5/5 bilaterally Extremities, no edema, full range of motion, normal strength Course Vital Signs Vital signs: Vital Signs Temperature 36.6 C 12/24/24 17:54 Pulse 78 12/24/24 17:54 Respiratory Rate 14 12/24/24 17:54 Blood Pressure 144/98 H 12/24/24 17:54 Pulse Oximetry 96 12/24/24 17:54 Temperature 36.6 C 12/24/24 18:00 Temperature Source Temporal Artery Scan 12/24/24 18:00 Pulse 78 12/24/24 18:00 Respiratory Rate 14 12/24/24 18:00 Blood Pressure 144/98 H 12/24/24 18:00 Blood Pressure Position Sitting 12/24/24 18:00 Pulse Oximetry 96 12/24/24 18:00 Oxygen Delivery Method Room Air 12/24/24 18:00 Oxygen Flow Rate 0 12/24/24 17:54 Medical Decision Making MDM: Summary: Patient presents with weeks of feeling fatigued tired with occasional joint pains and chills has been seen by her doctor and they said that she is okay but she says she is very fatigued and tired. Today she had blood work done x-rays EKG. EKG is within normal limits but x-ray does not show any abnormality but the lab work shows leukopenia thrombocytopenia and elevated LFTs which is kind of most likely the patient has anaplasmosis or infection by ehrlichiosis. 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 Human granulocytic early keratosis 2. Lyme disease 3. Babesiosis 4. Thrombocytopenia 5. Consultants: Shared disposition: Patient is as a disposition and will follow with her PCP accordingly Impression: Medical Records Medical records reviewed: Yes I reviewed the patient's medical records. Imaging Data Radiologic Study: Attestation: I personally reviewed and interpreted this imaging study as follows: Imaging: X-Ray My impression: No abnormality Lab Data Lab results reviewed: Yes I reviewed the patient's lab results. 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) Diabetic neuropathy (Acute) Medical History (Updated 12/24/24 @ 21:50 by Jose G Pal MD) Insomnia Migraine headache without aura Hepatitis C GERD (gastroesophageal reflux disease) Depression Hypertension Fracture of right lower limb Pain of breast Hernia Nonspecific tuberculin test reaction Hypothyroidism Right sided sciatica Pain in right lower leg Asthma Opioid dependence Type 2 diabetes mellitus Surgical History S/P ORIF (open reduction internal fixation) fracture R leg; 07/17, 10/16, 04/18 History of esophagogastroduodenoscopy (EGD) History of dilation and curettage History of liver biopsy History of cholecystectomy H/O resection of liver Family History Maternal Grandfather Stomach cancer Hypertension Lung cancer Paternal Grandmother Breast cancer Hypertension Maternal Uncle Diabetes Social History Smoking/Tobacco Use Status: Current-Occasional Tobacco Type: e-cigarettes Smoking risk assessment performed?: Yes Alcohol Intake: never Drug use: Never Substance use type: does not use Household members: none Housing: apartment Number of Children: 0 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, 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 Pets and animals: No Current gender identity: female What type of physical activity do you participate in: walking Frequency: 5-6 times per week Seatbelt use: always Vital Signs & Lab Results Vital Signs Most Recent Vital Signs: Most Recent Vital Signs Temp Pulse Resp BP Pulse Ox 36.6 C 78 18 144/98 H 96 12/24/24 18:00 12/24/24 18:00 12/24/24 20:34 12/24/24 18:00 12/24/24 18:00 Point of Care Results Nursing Point of Care Results: 2 Finger Stick Blood Glucose 101 (70 - 120) 12/24/24 18:03 Lab Results 12/24/24 19:13 12/24/24 19:00 Blood Type / Crossmatch: 2 No Data to Display Complete Blood Count: 2 White Blood Count 3.84 10^3/uL (4.4-10.8) L 12/24/24 19:13 Red Blood Count 3.53 10^6/uL (3.93-5.22) L 12/24/24 19:13 Hemoglobin 11.3 g/dL (11.2-15.7) 12/24/24 19:13 Hematocrit 32.7 % (36.0-46.0) L 12/24/24 19:13 Platelet Count 70 10^3/uL (130-400) L 12/24/24 19:13 Complete Metabolic Panel: 2 Sodium 133 mmol/L (136-145) L 12/24/24 19:00 Potassium 3.8 mmol/L (3.5-5.1) 12/24/24 19:00 Chloride 95 mmol/L (98-107) L 12/24/24 19:00 Carbon Dioxide 27.0 mmol/L (21.0-32.0) 12/24/24 19:00 BUN 12 mg/dL (7-18) 12/24/24 19:00 Creatinine 0.8 mg/dL (0.55-1.02) 12/24/24 19:00 Est GFR (CKD-EPI 2020) 90.83 (mL/min/1.73m2) 12/24/24 19:00 Magnesium 1.2 mg/dL (1.8-2.4) L 12/24/24 19:00 Calcium 9.0 mg/dL (8.5-10.1) 12/24/24 19:00 Albumin 3.4 g/dL (3.4-5.0) 12/24/24 19:00 Glucose 83 mg/dL (74-106) 12/24/24 19:00 Liver Function Panel: 2 Alanine Aminotransferase (ALT/SGPT) 44 U/L (14-59) 12/24/24 19: 00 Aspartate Amino Transf (AST/SGOT) 171 U/L (15-37) H 12/24/24 19 :00 Coagulation Panel: 2 No Data to Display Cardiac Panel: 2 Troponin I < 4 ng/L (<or=51) 12/24/24 Arterial Blood Gas: 2 No Data to Display Venous Blood Gas: 2 No Data to Display Pancreas Panel: 2 Lipase 15 U/L (<78) 12/24/24 19:00 Thyroid Panel: 2 No Data to Display Infectious Disease: 2 Coronavirus (COVID-19)(PCR) Negative (Negative) 12/24/24 18:55 Coronavirus 2019 Source Nasopharynx 12/24/24 18:55 Influenza Virus Type A (PCR) Negative (Negative) 12/24/24 18:5 5 Influenza Virus Type B (PCR) Negative (Negative) 12/24/24 18:5 5 Respiratory Syncytial Virus (PCR) Negative (Negative) 12/24/24 18:55 Blood Cultures: 2 No Data to Display Toxicology Panel: 2 No Data to Display Panel: 2 No Data to Display
--- NOTE | 2024-12-24 18:30 | RT.EKG_ITS ---
APPROVED REPORT Exam: Resting ECG Reason for Exam: weakness Patient Location: E HR:77 bpm ECG Measurements Heart Rate 77 AXIS SC 171 P 42 QRSd 68 QRS 11 QT 449 T -1 QTc 508 Conclusion Sinus rhythm...normal P axis, V-rate 60- 99
--- NOTE | 2024-12-24 19:00 | DI.RAD_ITS ---
Exam(s) XR CHEST 2V PA LATERAL EXAM: XR CHEST 2V PA LATERAL CLINICAL HISTORY: cough. TECHNIQUE: 2D digital imaging was performed. COMPARISON: CR ABD FLAT UPRIGHT PA CHEST from 08/15/2009 FINDINGS: 2 views: Heart size is normal. The mediastinum is not widened. Lungs are clear. No new infiltrates nor pleural effusions. IMPRESSION: No acute pulmonary findings. DATA REPOSITORY: RADIATION DOSE DELIVERED:
[2024-12-24 19:01] LABS: Bilirubin Small (Negative); Blood Negative (Negative); Clarity Clear (Clear); Glucose Negative (Negative); Ketones 40 mg/dL (Negative); Leukocyte Esterase Negative (Negative); Nitrite Negative (Negative); Urobilinogen >=8.0 mg/dL (Up to 0.2)
[2024-12-24 19:13] LABS: Bacteria Few HPF (Negative); C & S Indicated? No; Casts Negative LPF (Negative); Crystals Negative HPF (Negative); Epithelial Cells Moderate HPF (Negative); Mucus Trace (Negative); RBC Negative HPF (0-2); WBC Negative HPF (0-5)
[2024-12-24 19:24] LABS: Abs Immature Grans 0.01 10^3/uL (0.0-0.06); Absolute Basophil Count 0.02 10^3/uL (0.0-0.2); Absolute Eosinophil Count 0.01 10^3/uL (0.0-0.7); Absolute Lymphocyte Count 1.05 10^3/uL (1.2-3.4); Absolute Monocyte Count 0.38 10^3/uL (0.1-0.8); Absolute Neutrophil Count 2.37 10^3/uL (1.2-6.7); Basophils % 0.5 %; Eosinophils % 0.3 %; HCT 32.7 % (36.0-46.0); HGB 11.3 g/dL (11.2-15.7); Immature Grans % 0.3 %; Lymphocytes % 27.3 %; MCHC 34.6 % (32.0-36.0); MCV 93 fL (80-95); MPV 10.6 fL (8.0-11.0); Monocytes % 9.9 %; Neutrophils % 61.7 %; Platelet Count 70 10^3/uL (130-400); RBC 3.53 10^6/uL (3.93-5.22); RDW 14.2 % (11.7-14.6); RDW-SD 48.1 fL; WBC 3.84 10^3/uL (4.4-10.8)
[2024-12-24 19:34] LABS: ALT 44 U/L (14-59); AST 171 U/L (15-37); Albumin 3.4 g/dL (3.4-5.0); Alkaline Phosphatase 157 U/L (46-116); BUN 12 mg/dL (7-18); CREATININE 0.8 mg/dL (0.55-1.02); Chloride 95 mmol/L (98-107); Estimated GFR 90.83 (mL/min/1.73m2); Glucose 83 mg/dL (74-106); Lipase 15 U/L (<78); Magnesium 1.2 mg/dL (1.8-2.4); Potassium 3.8 mmol/L (3.5-5.1); Sodium 133 mmol/L (136-145); Total Protein 9.9 g/dL (6.4-8.2)
[2024-12-24 19:35] LABS: Diff Comment PLT Morph Reviewed; RBC Morphology Normal
[2024-12-24 19:36] LABS: Troponin I < 4 ng/L (<or=51)
[2024-12-24 19:38] LABS: COVID-19 PCR Negative (Negative); Influenza A PCR Negative (Negative); Influenza B PCR Negative (Negative); RSV PCR Negative (Negative)
[2024-12-24 19:49] LABS: Source Nasopharynx
[2024-12-24] MEDS: Normal Saline 1,000 ML 1000 ML IV (20:08)
[2024-12-24 20:20] LABS: Troponin I 4 ng/L (<or=51)
[2024-12-24 20:34] VITALS: RESP 18
[2024-12-24 21:12] LABS: Troponin I < 4 ng/L (<or=51)
[2024-12-24] MEDS: Doxycycline Hyclate 100 MG CAP PO (21:59)
[2024-12-24 22:11] VITALS: BP 134/88; PULSE 74; RESP 16; O2SAT 97
[2024-12-27 16:10] LABS: Anaplasma phagocytophilum IgG <1:64 titer (<1:64); Ehrlichia Chaffeensis(HME) IgG <1:64 titer (<1:64)
[2024-12-28 20:06] LABS: Anaplasma phagocytophilum Negative (Negative); Ehrlichia chaffeensis Negative (Negative); Ehrlichia ewingii/canis Negative (Negative); Ehrlichia muris eauclairensis Negative (Negative)
--- NOTE | 2024-12-29 13:49 | W.ED.FU ---
Date of service: 12/29/24 Time of Service: 14:10 Follow Up Plan: This is a 49-year-old female patient who was seen in our emergency department with thrombocytopenia, elevated LFTs, and a concern for tickborne illness. She called reporting 2 episodes of vomiting after taking her doxycycline. She states that she has been feeling better otherwise, and has been able to take 3 days of her antibiotics so far. She states that she takes Zofran and has tried taking this prior to the medication without improvement. I reviewed the laboratory studies, and note that the tickborne panel which was sent has returned as negative, I do not see Lyme on this list and question if this was sent or if it has not yet resulted. Given the concerning laboratory changes I do feel that it is important that this patient complete her course of doxycycline for coverage of tickborne illnesses. For this reason, I prescribed her a short course of Phenergan to trial and counseled her to continue to maintain good hydration, take the medication after a small meal, and to follow-up with her primary care provider. The patient had an opportunity to have all questions answered to her satisfaction. Prescription sent to [facility] [place] per her request. Bri Maxwell MD
== END 2024-12-24 22:13 | disposition home or self-care (01) ==
PROVIDERS: Emergency Provider Emergency Medicine Emergency Medical Services; PCP Registered Nurse
DX: A77.49 Other ehrlichiosis (principal)
CPT/HCPCS: 99284 ×2; 36415; 36416; 82962; 80053; 83690; 87040; 87637; 93005; 96360; 71046; 81003; 81015; 83735; 84484; 85025; 86666; 87798; 93010